=== PATIENT | female | born 1995 | race Asian ===

== ENCOUNTER 2018-10-15 13:12 | Emergency (ER) | payer OTHER ==
[~2018-10-15] VITALS: Ht 160 cm; Wt 76.2 kg
--- NOTE | 2018-10-15 14:59 | PHYS DOC ---
Past Medical History Past Medical History: No Pertinent History Past Surgical History: No Surgical History Alcohol Use: None Drug Use: None Adult General Chief Complaint Chief Complaint: ABDOMINAL PAIN IN HPI HPI Patient is a 23-year-old female, 2, para 1, approximately 7 weeks gestation, who presents to the emergency department for evaluation. Patient states that this morning she awakened with left-sided pelvic pain, feeling like she is expressing pressure on her ovary. She has had care this , including testing by her LAUNDRY MACHINE TENDER she states, as well as an early trimester ultrasound which the patient reports as being normal. She has not had any fevers or chills, although she has had some intermittent nausea and vomiting. She has not had any urinary symptoms, abnormal vaginal discharge, or vaginal bleeding. There are no alleviating or exacerbating factors to the patient's symptoms. Review of Systems Review of Systems Constitutional: Denies fever or chills [] Eyes: Denies change in visual acuity, redness, or eye pain [] HENT: Denies nasal congestion or sore throat [] Respiratory: Denies cough or shortness of breath [] Cardiovascular: The patient denies any shortness of breath, chest pain, palpitations, or orthopnea [] GI: Denies bloody stools or diarrhea [] : Denies dysuria or hematuria [] Musculoskeletal: Denies back pain or joint pain [] Integument: Denies rash or skin lesions [] Neurologic: Denies headache, focal weakness or sensory changes [] Endocrine: Denies polyuria or polydipsia [] All other systems were reviewed and found to be within normal limits, except as documented in this note. Current Medications Current Medications Current Medications Medications (Trade) Dose Ordered Sig/Francisca Start Time Stop Time Status Last Admin Dose Admin Acetaminophen (Tylenol) 1,000 mg 1X ONCE 10/15/18 15:00 10/15/18 15:01 DC 10/15/18 15:31 1,000 MG Allergies Allergies Allergies Coded Allergies Type Severity Reaction Last Updated Verified shrimp Allergy Severe CLOSES AIRWAY 10/15/18 Yes Physical Exam Physical Exam PHYSICAL EXAM: CONSTITUTIONAL: Well developed, well nourished HEAD: normocephalic, atraumatic EENT: PERRL, EOMI. Conjunctivae normal color, sclerae non-icteric; moist mucous membranes. NECK: Supple, non-tender; no meningismus. LUNGS: Lungs CTA, breathing even and unlabored. Normal air movement. HEART: Regular rate and rhythm, no murmur CHEST: No deformity; non-tender ABDOMEN: The abdomen is soft, there is mild tenderness to palpation in the left suprapubic region, without any rebound or guarding. The remainder the abdomen is soft and non-tender, no masses or bruits. EXTREM: Normal ROM; no deformity, no calf tenderness. Normal pulses palpable in all extremities. There is no pedal edema. SKIN: No rash; no diaphoresis NEURO: Alert; normal speech and cognition; CN's grossly intact; strength grossly intact without focal deficit. BACK: No CVA TTP. Current Patient Data Vital Signs Vital Signs Date Time Temp Pulse Resp B/P (MAP) Pulse Ox O2 Delivery O2 Flow Rate FiO2 10/15/18 13:36 98.4 83 16 122/67 (85) 97 Room Air 98.4 Lab Values Laboratory Tests Test 10/15/18 13:49 10/15/18 15:05 10/15/18 15:10 10/15/18 15:35 POC Urine HCG, Qualitative Hcg positive (Negative) White Blood Count 6.6 x10^3/uL (4.0-11.0) Red Blood Count 4.65 x10^6/uL (3.50-5.40) Hemoglobin 12.8 g/dL (12.0-15.5) Hematocrit 38.9 % (36.0-47.0) Mean Corpuscular Volume 84 fL (79-100) Mean Corpuscular Hemoglobin 27 pg (25-35) Mean Corpuscular Hemoglobin Concent 33 g/dL (31-37) Red Cell Distribution Width 15.9 % (11.5-14.5) H Platelet Count 209 x10^3/uL (140-400) Neutrophils (%) (Auto) 64 % (31-73) Lymphocytes (%) (Auto) 25 % (24-48) Monocytes (%) (Auto) 10 % (0-9) H Eosinophils (%) (Auto) 1 % (0-3) Basophils (%) (Auto) 1 % (0-3) Neutrophils # (Auto) 4.2 x10^3uL (1.8-7.7) Lymphocytes # (Auto) 1.6 x10^3/uL (1.0-4.8) Monocytes # (Auto) 0.6 x10^3/uL (0.0-1.1) Eosinophils # (Auto) 0.1 x10^3/uL (0.0-0.7) Basophils # (Auto) 0.0 x10^3/uL (0.0-0.2) Urine Collection Type Unknown Urine Color Yellow Urine Clarity Clear Urine pH 7.0 Urine Specific [place] 1.020 Urine Protein Negative mg/dL (NEG-TRACE) Urine Glucose (UA) Negative mg/dL (NEG) Urine Ketones (Stick) Negative mg/dL (NEG) Urine Blood Negative (NEG) Urine Nitrite Negative (NEG) Urine Bilirubin Negative (NEG) Urine Urobilinogen Dipstick 0.2 mg/dL (0.2 mg/dL) Urine Leukocyte Esterase Negative (NEG) Urine RBC 0 /HPF (0-2) Urine WBC Occ /HPF (0-4) Urine Squamous Epithelial Cells Few /LPF Urine Bacteria Few /HPF (0-FEW) Urine Mucus Mod /LPF Maternal Serum HCG Beta Subunit 28565 mIU/mL (0-5) H Sodium Level 141 mmol/L (136-145) Potassium Level 4.0 mmol/L (3.5-5.1) Chloride Level 103 mmol/L (98-107) Carbon Dioxide Level 29 mmol/L (21-32) Anion Gap 9 (6-14) Blood Urea Nitrogen 7 mg/dL (7-20) Creatinine 0.6 mg/dL (0.6-1.0) Estimated GFR (Cockcroft-Gault) 125.0 BUN/Creatinine Ratio 12 (6-20) Glucose Level 89 mg/dL (70-99) Calcium Level 8.9 mg/dL (8.5-10.1) Total Bilirubin 0.5 mg/dL (0.2-1.0) Aspartate Amino Transferase (AST) 14 U/L (15-37) L Alanine Aminotransferase (ALT) 19 U/L (14-59) Alkaline Phosphatase 104 U/L (46-116) Total Protein 7.7 g/dL (6.4-8.2) Albumin 3.7 g/dL (3.4-5.0) Albumin/Globulin Ratio 0.9 (1.0-1.7) L Laboratory Tests 10/15/18 15:05 Laboratory Tests 10/15/18 15:35 EKG EKG [] Radiology/Procedures Radiology/Procedures [PROCEDURE: OB <14 WKS W/TV Transabdominal and transvaginal sonogram of the pelvis-OB ultrasound study less than 14 weeks Clinical indications: 7 weeks . Left pelvic pain. Transabdominal sonography: Uterus is anteverted in position. The longitudinal and AP and transverse dimensions of the uterus are 11.0 cm and 5.5 cm and 6.3 cm respectively. There is a possible intrauterine gestational sac within the fundus of the uterus. Transvaginal sonography will be performed. Neither ovary is visualized. No adnexal mass or free fluid is evident. Transvaginal sonography: Within the fundus of the uterus, a round fluid collection is seen with a mean diameter of 2.15 cm corresponding to a gestational age of 7 weeks 1 day. No intrauterine pole or heartbeat or yolk sac is seen. Given the mean sac diameter, the finding is suspicious for but not diagnostic of failed i.e. blighted ovum. The right ovary measures 3.1 cm and 1.7 cm and 1.4 cm in size and is normal. Color Doppler flow is seen within the right ovary. The left ovary measures 1.0 cm and 2.2 cm and 1.4 cm in size and is normal. Color Doppler flow is seen within the left ovary. No adnexal mass is seen. IMPRESSION: Round fluid collection within the fundus uterus with a mean diameter of 2.15 cm which is suspicious for but not diagnostic of failed i.e. blighted ovum. Typically, the mean diameter of 2.5 cm or greater is needed to make this diagnosis with 100% confidence. Therefore, correlation with serial quantitative beta-hCG studies is recommended. Since a true intrauterine fetus is not seen, an ectopic has not been excluded. ] Course & Med Decision Making Course & Med Decision Making Pertinent Labs and Imaging studies reviewed. (See chart for details) [4:50 PM: The patient's condition remains stable. I discussed the case with her LAUNDRY MACHINE TENDER, Dr. Eisenberg, who will see the patient in the office this coming week. I discussed return precautions with the patient as well as pain management with acetaminophen.] She is blood pressure is 101/60 at this time. She did have some lower readings, but the blood pressure cuff was on her left arm and she was laying in the right decubitus position and with her arm elevated above her body.. Dragon Disclaimer Dragon Disclaimer This electronic medical record was generated, in whole or in part, using a voice recognition dictation system. Departure Departure Impression: Primary Impression: Blighted ovum Additional Impression: Pelvic pain affecting Disposition: HOME, SELF-CARE Condition: STABLE Referrals: HEATHER EISENBERG Jr, MD Patient Instructions: Abdominal Pain During , Blighted Ovum, Pelvic Pain, Female Additional Instructions: Tylenol as needed for pain. Return to medical care for any new or worsening symptoms, development of increasing pain, dizziness or lightheadedness, or any other new, or concerning symptoms. Problem Qualifiers CARLOS ESTEVEZ MD Oct 15, 2018 14:59
[2018-10-15] MEDS ORDERED: ACETAMINOPHEN 500 MG TABLET PO ONE (15:00)
[2018-10-15 15:15] LABS: BASO % 1 % (0-3); EOS # 0.1 x10^3/uL (0.0-0.7); EOS % 1 % (0-3); HEMATOCRIT 38.9 % (36.0-47.0); HEMOGLOBIN 12.8 g/dL (12.0-15.5); LYMPH # 1.6 x10^3/uL (1.0-4.8); LYMPH % 25 % (24-48); MEAN CORPUSCULAR HEMOGLOBIN 27 pg (25-35); MEAN CORPUSCULAR HGB CONC 33 g/dL (31-37); MEAN CORPUSCULAR VOLUME 84 fL (79-100); MONO # 0.6 x10^3/uL (0.0-1.1); MONO % 10 % (0-9); NEUT # 4.2 x10^3uL (1.8-7.7); NEUT % 64 % (31-73); PLATELET COUNT 209 x10^3/uL (140-400); RED BLOOD COUNT 4.65 x10^6/uL (3.50-5.40); RED CELL DISTRIBUTION WIDTH 15.9 % (11.5-14.5); WHITE BLOOD COUNT 6.6 x10^3/uL (4.0-11.0)
[2018-10-15 15:16] LABS: BILIRUBIN,URINE NEGATIVE (NEG); CLARITY,URINE CLEAR; COLOR,URINE YELLOW; NITRITE,URINE NEGATIVE (NEG); PROTEIN,URINE NEGATIVE (NEG-TRACE); UROBILINOGEN,URINE 0.2 mg/dL (0.2 mg/dL)
[2018-10-15 15:36] LABS: BACTERIA,URINE FEW /HPF (0-FEW); RBC,URINE 0 /HPF (0-2); SQUAMOUS EPITHELIAL CELL,UR FEW /LPF; WBC,URINE OCC /HPF (0-4)
[2018-10-15 15:54] LABS: CALCIUM 8.9 mg/dL (8.5-10.1); CREATININE 0.6 mg/dL (0.6-1.0)
[2018-10-15 16:08] LABS: ALBUMIN 3.7 g/dL (3.4-5.0); ALBUMIN/GLOBULIN RATIO 0.9 (1.0-1.7); TOTAL BILIRUBIN 0.5 mg/dL (0.2-1.0); TOTAL PROTEIN 7.7 g/dL (6.4-8.2)
--- NOTE | 2018-10-15 16:31 | RAD ---
Transabdominal and transvaginal sonogram of the pelvis-OB ultrasound study less than 14 weeks Clinical indications: 7 weeks . Left pelvic pain. Transabdominal sonography: Uterus is anteverted in position. The longitudinal and AP and transverse dimensions of the uterus are 11.0 cm and 5.5 cm and 6.3 cm respectively. There is a possible intrauterine gestational sac within the fundus of the uterus. Transvaginal sonography will be performed. Neither ovary is visualized. No adnexal mass or free fluid is evident. Transvaginal sonography: Within the fundus of the uterus, a round fluid collection is seen with a mean diameter of 2.15 cm corresponding to a gestational age of 7 weeks 1 day. No intrauterine pole or heartbeat or yolk sac is seen. Given the mean sac diameter, the finding is suspicious for but not diagnostic of failed i.e. blighted ovum. The right ovary measures 3.1 cm and 1.7 cm and 1.4 cm in size and is normal. Color Doppler flow is seen within the right ovary. The left ovary measures 1.0 cm and 2.2 cm and 1.4 cm in size and is normal. Color Doppler flow is seen within the left ovary. No adnexal mass is seen. IMPRESSION: Round fluid collection within the fundus uterus with a mean diameter of 2.15 cm which is suspicious for but not diagnostic of failed i.e. blighted ovum. Typically, the mean diameter of 2.5 cm or greater is needed to make this diagnosis with 100% confidence. Therefore, correlation with serial quantitative beta-hCG studies is recommended. Since a true intrauterine fetus is not seen, an ectopic has not been excluded. Electronically signed by: David Garg MD (10/15/2018 4:28 PM) [place] [id number]
[2018-10-15 17:30] VITALS: BP 99/50
[2018-10-23] MEDS ORDERED: ACET325T9 PO (11:47)
== END 2018-10-15 17:39 | disposition home or self-care (01) ==
LOC: ER 13:12
DX: O02.0 Blighted ovum and nonhydatidiform mole (principal); R10.2 Pelvic and perineal pain; O21.8 Other vomiting complicating pregnancy; Z91.013 Allergy to seafood; Z3A.01 Less than 8 weeks gestation of pregnancy
CPT/HCPCS: 36415; 76801; 76817; 80053; 81001; 81025; 84702; 85025; 86900; 86901; 99284-25

== ENCOUNTER 2018-10-26 05:53 | Day surgery (SDC) | payer OTHER ==
[~2018-10-26] VITALS: Ht 160 cm; Wt 76.2 kg
[~2018-10-26 05:53] MED LIST: ACET325T9 PO; OXYTOCIN 10 UNIT/ML VIAL. ONE; VASOPRESSIN 20 UNIT/ML VIAL. ONE
[2018-10-26] MEDS ORDERED: fentaNYL PF VIAL 100 MCG/2 ML VIAL IV PRN ×2 (07:00)
[2018-10-26] MEDS ORDERED: LIDOCAINE 1% PF 2 ML VIAL. ID PRN (07:00)
[2018-10-26] MEDS ORDERED: HYDROmorphone 2 MG/ML VIAL IV PRN (07:00)
[2018-10-26] MEDS ORDERED: IV RINGERS,LACTATED 1000ML 1,000 ML IV SCH (07:00)
[2018-10-26] MEDS ORDERED: MORPHINE SULFATE 2 MG/ML VIAL. IV PRN (07:00)
[2018-10-26] MEDS ORDERED: PROCHLORPERAZINE 10 MG/2 ML VIAL. IV PRN (07:00)
[2018-10-26] MEDS ORDERED: ceFAZolin 2GM PREMIX 2 GM/50 ML BAG IV ONE (07:00)
[2018-10-26] MEDS ORDERED: ONDANSETRON PF 4 MG/2 ML VIAL. IV PRN (07:00)
[2018-10-26] MEDS ORDERED: ONDANSETRON PF 4 MG/2 ML VIAL. ONE (07:24)
[2018-10-26] MEDS ORDERED: fentaNYL PF VIAL 100 MCG/2 ML VIAL ONE (07:24)
[2018-10-26] MEDS ORDERED: DEXAMETHASONE SOD PHOS 20 MG/5 ML VIAL. ONE (07:24)
[2018-10-26] MEDS ORDERED: LIDOCAINE 2% PF 5 ML VIAL. ONE (07:24)
[2018-10-26] MEDS ORDERED: MIDAZOLAM HCL/PF 2 MG/2 ML VIAL. ONE (07:24)
[2018-10-26] MEDS ORDERED: PROPOFOL 20 ML IV ONE (07:24)
[2018-10-26] MEDS ORDERED: KETOROLAC 30 MG/ML INJ FOR OR. INJ ONE (07:54)
[2018-10-26] MEDS ORDERED: SEVOFLURANE 16 TO 30 MINUTES. IH ONE (08:06)
[2018-10-26] MEDS ORDERED: FAMOTIDINE 20 MG/2 ML VIAL ONE (08:06)
--- NOTE | 2018-10-26 08:09 | PDOC ---
BRIEF OPERATIVE NOTE Date: Oct 26, 2018 Pre-Op Diagnosis Blighted ovum Post-Op Diagnosis Same Procedure Performed Suction D&C Surgeon Dr. Eisenberg Anesthesia Type: General Blood Loss 100 ml Specimens Obtained POC Findings POC Complications none Operative Note see dictation HEATHER EISENBERG Jr, MD Oct 26, 2018 08:09
--- NOTE | 2018-10-26 08:10 | DISCH ---
DISCHARGE INSTRUCTIONS Condition on Discharge Condition on Discharge: Stable Activity After Discharge Activity Instructions for Disc: Activity as tolerated Lifting Instructions after Dis: No heavy lifting Driving Instructions after Dis: Do not drive today Diet after Discharge Diet after Discharge: Regular Contacting the DRKaren after DC Call your doctor for: Concerns you may have Follow-Up Follow up with: Dr. Eisenberg in 1 week. HEATHER EISENBERG Jr, MD Oct 26, 2018 08:10
--- NOTE | 2018-10-26 08:19 | OP ---
DATE OF SURGERY: 10/26/2018 PREOPERATIVE DIAGNOSIS: A 7-week blighted ovum. POSTOPERATIVE DIAGNOSIS: A 7-week blighted ovum. PROCEDURE: Suction D and C. SURGEON: Angus Eisenberg MD. ANESTHESIA: GETA. ESTIMATED BLOOD LOSS: 100 mL. COMPLICATIONS: None. FINDINGS: Products of conception and blood products. SUMMARY: A 23-year-old female who was diagnosed with blighted ovum in clinic, required suction D and C. She was counseled on risks, benefits and expectations and voiced her clear understanding to proceed. DESCRIPTION OF PROCEDURE: The patient was taken to the surgery suite and placed in dorsal lithotomy position. She was prepped with Betadine solution and draped in a sterile fashion. After adequate anesthesia, weighted speculum and curved [place] were placed vaginally. The anterior lip of the cervix grasped with single tooth tenaculum. The cervix then dilated with Hegar dilators up to size 9. The suction curette was then passed and rotated in circumferential manner removing blood products and some products of conception. Sharp curettage took place until a fine gritty surface was palpated circumferentially. Suction curette was passed once again removing additional products of conception and blood products. Suction was then removed. Single tooth tenaculum, weighted speculum and curved [place] were also removed. The patient tolerated the procedure well and was taken to recovery room in stable condition. Sponge and needle count correct x 3. ANGUS EISENBERG MD DR: TRUDY/nts JOB#: [id number] / [id number]
[2018-10-26] MEDS ORDERED: OXYC1TAB15 PO (08:22)
[2018-10-26 09:27] VITALS: BP 101/59
== END 2018-10-26 10:07 | disposition home or self-care (01) ==
LOC: SURG 05:53
PROVIDERS: ATTEND Obstetrics & Gynecology
DX: O02.0 Blighted ovum and nonhydatidiform mole (principal); Z3A.01 Less than 8 weeks gestation of pregnancy; Z91.018 Allergy to other foods
CPT/HCPCS: 59820; 88305; J0696; J1100; J1885; J2001; J2250; J2405; J2704; J3010; J3490; J2590

== ENCOUNTER 2020-08-30 19:12 | Emergency (ER) | payer OTHER ==
[~2020-08-30] VITALS: Ht 160 cm; Wt 63.0 kg
[~2020-08-30 19:12] MED LIST changes: +OXYC1TAB15 PO; -OXYTOCIN 10 UNIT/ML VIAL. ONE; -VASOPRESSIN 20 UNIT/ML VIAL. ONE
[2020-08-30] MEDS ORDERED: HYDROcodone/APAP 5/325MG 1 TAB TABLET PO ONE (20:00)
--- NOTE | 2020-08-30 20:01 | PHYS DOC ---
Past Medical History Past Medical History: Other Additional Past Medical Histor: BLIGHTED OVUM W D&C Past Surgical History: Other Additional Past Surgical Histo: D & C Smoking Status: Former Smoker Alcohol Use: None Drug Use: None General Adult EDM: Chief Complaint: ANKLE PROBLEM HPI: HPI: Patient is a 25 year old female who presents with states today she slipped and twisted her left ankle rolling it inward. She has anterior malleolus tenderness and lateral malleolus swelling 2+. Patient is unable to walk on the extremity due to pain. She denies any numbness or tingling, coolness to the extremity, joint weakness. Patient has a history of bilateral, D&C, former smoker. She rates her aching pain 8 out of 10. Review of Systems: Review of Systems: Constitutional: Denies fever or chills. [] Eyes: Denies change in visual acuity. [] HENT: Denies nasal congestion or sore throat. [] Respiratory: Denies cough or shortness of breath. [] Cardiovascular: Denies chest pain. + Left ankle edema. [] GI: Denies abdominal pain, nausea, vomiting, bloody stools or diarrhea. [] : Denies dysuria. [] Musculoskeletal: Denies back pain. + Left ankle and + left foot joint pain. [] Integument: Denies rash. [] Neurologic: Denies headache, focal weakness or sensory changes. [] Endocrine: Denies polyuria or polydipsia. [] Lymphatic: Denies swollen glands. [] Psychiatric: Denies depression or anxiety. [] Heart Score: Risk Factors: Risk Factors: DM, Current or recent (<one month) smoker, HTN, HLP, family history of CAD, obesity. Risk Scores: Score 0 - 3: 2.5% MACE over next 6 weeks - Discharge Home Score 4 - 6: 20.3% MACE over next 6 weeks - Admit for Clinical Observation Score 7 - 10: 72.7% MACE over next 6 weeks - Early Invasive Strategies Current Medications: Current Medications Medications (Trade) Dose Ordered Sig/Francisca Start Time Stop Time Status Last Admin Dose Admin Acetaminophen/ Hydrocodone Bitart (Lortab 5/325) 1 tab 1X ONCE 08/30/20 20:00 08/30/20 20:01 Allergies: Allergies: Allergies Coded Allergies Type Severity Reaction Last Updated Verified shrimp Allergy Severe CLOSES AIRWAY 10/26/18 Yes Physical Exam: PE: Constitutional: Well developed, well nourished, no acute distress, non-toxic appearance. [] HENT: Normocephalic, atraumatic, bilateral external ears normal, oropharynx moist, no oral exudates, nose normal. [] Eyes: PERRLA, EOMI, conjunctiva normal, no discharge. [] Neck: Normal range of motion, no tenderness, supple, no stridor. [] Cardiovascular:Heart rate regular rhythm, no murmur [] Lungs & Thorax: Bilateral breath sounds clear to auscultation [] Abdomen: Bowel sounds normal, soft, no tenderness, no masses, no pulsatile masses. [] Skin: Warm, dry, no erythema, no rash. [] Back: No tenderness, no CVA tenderness. [] Extremities: Left anterior malleus tenderness, no cyanosis, no clubbing, left malleus ROM not intact, 2+ edema. [] Neurologic: Alert and oriented X 3, normal motor function, normal sensory function, no focal deficits noted. [] Psychologic: Affect normal, judgement normal, mood normal. [] Current Patient Data: Vital Signs: Vital Signs Date Time Temp Pulse Resp B/P (MAP) Pulse Ox O2 Delivery O2 Flow Rate FiO2 08/30/20 19:12 97.7 79 16 126/81 (96) 100 Room Air 97.7 EKG: EKG: [] Radiology/Procedures: Radiology/Procedures: [] Impression: [facility] [address] [place], [place] [id number] IMAGING REPORT Signed PATIENT: HUSEYIN ISAACS ACCOUNT: [id number] : 1995 LOCATION: ER AGE: 25 SEX: F EXAM STATUS: REG ER ORD. PHYSICIAN: TEE CAICEDO APRN REASON: pain, rolled ankle PROCEDURE: ANKLE LEFT 3V EXAM: 3 views left ankle 3 views left foot DATE: 08/30/2020 8:07 PM INDICATION: Reason: pain, rolled ankle / Spl. Instructions: / History: COMPARISON: No Prior FINDINGS: No acute fracture or dislocation. Forefoot soft tissue swelling. Ankle mortise is congruent. Talar dome is intact. Mild forefoot soft tissue swelling. IMPRESSION: No evidence of acute fracture or dislocation. Electronically signed by: Edd Yañez MD (08/30/2020 8:15 PM) [facility] DICTATED and SIGNED BY: EDD YAÑEZ MD DATE: 08/30/[id number] 0 Course & Med Decision Making: Course & Med Decision Making Pertinent Labs and Imaging studies reviewed. (See chart for details) See HPI. Alert and oriented x4. Ambulatory with a steady but limping gait on on the left leg. Speaks in full complete sentences. There is no tenderness to the tib-fib, knee. She denies any other pain and she denies hitting her head. She denies any back pain. She has full range of motion of the knee. No joint deformities. Pedal pulses strong present. Skin pink warm and dry. Cap refill less than 2 seconds. Range of motion in the ankle is not intact due to pain and swelling. Patient can wiggle her toes but it also causes her pain. There is no tenderness to the foot with palpation. Xray shows no acute findings. Patient is placed in a Cam Boot and to follow up with orthopedic. [] Dragon Disclaimer: Dragon Disclaimer: This electronic medical record was generated, in whole or in part, using a voice recognition dictation system. Departure Departure Impression: Primary Impression: Ankle pain, left Qualified Codes: M25.572 - Pain in left ankle and joints of left foot Disposition: 01 DC HOME SELF CARE/HOMELESS Condition: STABLE Referrals: ESTRELLITA GUAJARDO MD (PCP) MALGORZATA POTTER MD Patient Instructions: Ankle Sprain Additional Instructions: Follow up with the orthopedic or your primary care provider. Keep the extremity elevated and put ice on the extremity for pain and swelling. Take Ibuprofen for pain. Take prescription as prescribed and do not drink alcohol, drive, or take other drugs on top of narcotics as they will make you sleepy. Scripts Hydrocodone/Acetaminophen (Hydrocodone-Acetamin 5-325 mg) 1 Each Tablet 1 EACH PO Q6HRS PRN for PAIN, #10 TAB Prov: TEE CAICEDO ADMINISTRATIVE SALES ASSISTANT 08/30/20 Ibuprofen (IBUPROFEN) 600 Mg Tablet 600 MG PO PRN Q6HRS PRN for INFLAMMATION, #25 TAB Prov: TEE CAICEDO APRN 08/30/20 TEE CAICEDO APRN Aug 30, 2020 20:01
--- NOTE | 2020-08-30 20:17 | RAD ---
EXAM: 3 views left ankle 3 views left foot DATE: 08/30/2020 8:07 PM INDICATION: Reason: pain, rolled ankle / Spl. Instructions: / History: COMPARISON: No Prior FINDINGS: No acute fracture or dislocation. Forefoot soft tissue swelling. Ankle mortise is congruent. Talar dome is intact. Mild forefoot soft tissue swelling. IMPRESSION: No evidence of acute fracture or dislocation. Electronically signed by: Edd Seymour MD (08/30/2020 8:15 PM) [place]
[2020-08-30] MEDS ORDERED: HYDR-2759 PO (20:24)
[2020-08-30] MEDS ORDERED: IBUP-1007 PO (20:24)
[2020-08-30 20:47] VITALS: BP 116/65
== END 2020-08-30 21:03 | disposition home or self-care (01) ==
LOC: ER 19:12
DX: M25.572 Pain in left ankle and joints of left foot (principal); G89.11 Acute pain due to trauma; Z87.891 Personal history of nicotine dependence; Z91.013 Allergy to seafood; W01.0XXA Fall on same level from slipping, tripping and stumbling without subsequent striking against object, initial encounter; Y93.89 Activity, other specified; Y92.89 Other specified places as the place of occurrence of the external cause; Y99.8 Other external cause status
CPT/HCPCS: 73610; 73630; 99284; 99285

== ENCOUNTER 2020-10-28 18:35 | Emergency (ER) | payer OTHER ==
[~2020-10-28] VITALS: Ht 160 cm; Wt 75.0 kg
[~2020-10-28 18:35] MED LIST changes: +HYDR-2759 PO; +IBUP-1007 PO
[2020-10-28] MEDS ORDERED: IV NORMAL SALINE 1000ML BAG 1,000 ML IV ONE (19:30)
[2020-10-28] MEDS ORDERED: ONDANSETRON PF 4 MG/2 ML VIAL. IV ONE (19:30)
[2020-10-28] MEDS ORDERED: LIDO:MAALOX 1:1 20 ML SINGLE DOSE. SWSW ONE (19:30)
[2020-10-28 20:00] LABS: BASO # 0.1 x10^3/uL (0.0-0.2); BASO % 1 % (0-3); EOS # 0.3 x10^3/uL (0.0-0.7); EOS % 3 % (0-3); HEMATOCRIT 42.7 % (36.0-47.0); HEMOGLOBIN 14.1 g/dL (12.0-15.5); LYMPH # 2.3 x10^3/uL (1.0-4.8); LYMPH % 26 % (24-48); MEAN CORPUSCULAR HEMOGLOBIN 28 pg (25-35); MEAN CORPUSCULAR HGB CONC 33 g/dL (31-37); MEAN CORPUSCULAR VOLUME 86 fL (79-100); MONO # 0.6 x10^3/uL (0.0-1.1); MONO % 7 % (0-9); NEUT # 5.5 x10^3/uL (1.8-7.7); NEUT % 63 % (31-73); PLATELET COUNT 217 x10^3/uL (140-400); RED BLOOD COUNT 4.98 x10^6/uL (3.50-5.40); RED CELL DISTRIBUTION WIDTH 13.9 % (11.5-14.5); WHITE BLOOD COUNT 8.7 x10^3/uL (4.0-11.0)
[2020-10-28 20:04] LABS: BILIRUBIN,URINE NEGATIVE (NEG); CLARITY,URINE CLEAR; NITRITE,URINE NEGATIVE (NEG); PH,URINE 7.5 (<5.0-8.0); PROTEIN,URINE NEGATIVE (NEG-TRACE); UROBILINOGEN,URINE 0.2 mg/dL (0.2 mg/dL)
[2020-10-28 20:08] LABS: CALCIUM 9.2 mg/dL (8.5-10.1); CREATININE 0.9 mg/dL (0.6-1.0); GFR 76.9; POTASSIUM 3.7 mmol/L (3.5-5.1)
[2020-10-28 20:14] LABS: ALBUMIN 4.3 g/dL (3.4-5.0); ALBUMIN/GLOBULIN RATIO 0.9 (1.0-1.7); TOTAL BILIRUBIN 0.3 mg/dL (0.2-1.0); TOTAL PROTEIN 8.9 g/dL (6.4-8.2)
[2020-10-28 20:14] LABS: BACTERIA,URINE MANY /HPF (0-FEW); COLOR,URINE STRAW
[2020-10-28 20:16] LABS: RBC,URINE 0 /HPF (0-2); WBC,URINE OCC /HPF (0-4)
--- NOTE | 2020-10-28 20:18 | EKG ---
[facility] [address] [place] [address] Test Date: 2020-10-28 Test Time: 19:11:16 Pat Name: HUSEYIN ISAACS Department: Room: Gender: F Cabinet Maker: : 1995 Requested By: ELAINE WALDROP Order Number: [id number] Reading MD: Measurements Intervals [place] Rate: 66 P: 42 VA: 136 QRS: 47 QRSD: 70 T: 32 QT: 382 QTc: 402 Interpretive Statements SINUS RHYTHM LEFT ATRIAL ABNORMALITY ABNORMAL ECG RI6.02 No previous ECG available for comparison
--- NOTE | 2020-10-28 20:27 | RAD ---
Study: XR CHEST 2V Indication: Shortness of air. Chest pain. Comparison: None. Findings: The cardiomediastinal silhouette and anup are within normal limits. No focal airspace opacity, pleural effusion or pneumothorax. Grossly intact osseous structures. Unremarkable upper abdomen. Impression: No acute radiographic abnormality of the chest. Electronically signed by: CELINA MANCIA MD (10/28/2020 8:25 PM) [facility]
[2020-10-28] MEDS ORDERED: IOHEXOL 350 MG/ML 100 ML VIAL. IV ONE (20:30)
--- NOTE | 2020-10-28 20:40 | ED.ADGEN ---
Past Medical History Past Medical History: Other Additional Past Medical Histor: BLIGHTED OVUM W D&C Past Surgical History: Other Additional Past Surgical Histo: D & C Smoking Status: Former Smoker Additional Information: "I STOPPED 3 DAYS AGO." Alcohol Use: Occasionally Drug Use: None General Adult EDM: Chief Complaint: SHORTNESS OF BREATH HPI: HPI: Patient is a 25 year old female who presents emergency department with complaints of epigastric pain that radiates up to her chest for the last 3 days. Patient reports that she is also felt short of breath, she denies any wheezing. Patient reports that her epigastric pain radiates through to her back. She denies any dizziness, headache, palpitations, diaphoresis, nausea, vomiting, diarrhea, or lower abdominal pain. She denies any known exposure to COVID-19. Patient denies any fever, cough, sore throat, or myalgias. She states that her chest pain increases when she takes a deep breath. Patient reports concern because she has family history of stroke and heart attacks. Patient reports that she did smoke cigarettes until she developed her symptoms 3 days ago. She currently rates her discomfort 8 out of 10 on the pain scale, she denies any alleviating factors. Review of Systems: Review of Systems: Complete ROS is negative unless otherwise noted in HPI. Current Medications: Current Medications Medications (Trade) Dose Ordered Sig/[facility] Start Time Stop Time Status Last Admin Dose Admin Info (CONTRAST GIVEN -- Rx MONITORING) 1 each PRN DAILY PRN 10/28/20 20:45 10/30/20 20:44 Iohexol (Omnipaque 350 Mg/ml) 100 ml 1X ONCE 10/28/20 20:30 10/28/20 20:31 DC 10/28/20 20:51 100 ML Multi-Ingredient Mouthwash/Gargle (Gi Cocktail) 20 ml 1X ONCE 10/28/20 19:30 10/28/20 19:31 DC 10/28/20 19:54 20 ML Ondansetron HCl (Zofran) 4 mg 1X ONCE 10/28/20 19:30 10/28/20 19:31 DC 10/28/20 19:54 4 MG Sodium Chloride 1,000 ml @ 1,000 mls/hr 1X ONCE 10/28/20 19:30 10/28/20 20:29 DC 10/28/20 19:54 1,000 MLS/HR Allergies: Allergies: Allergies Coded Allergies Type Severity Reaction Last Updated Verified shrimp Allergy Severe CLOSES AIRWAY 10/26/18 Yes Physical Exam: PE: See Above Constitutional: Well developed, well nourished, no acute distress, non-toxic appearance, anxious. [] HENT: Normocephalic, atraumatic, bilateral external ears normal, nose normal. [] Eyes: PERRLA, EOMI, conjunctiva normal, no discharge. [] Neck: Normal range of motion, no stridor. [] Cardiovascular:Heart rate regular rhythm Lungs & Thorax: Respirations even and unlabored, no retractions, no respiratory distress, nontender Abdomen: soft, epigastric tenderness to palpation, abdomen is otherwise nontender, no palpable mass, no pulsatile mass, no guarding, no rebound tenderness Skin: Warm, dry, no erythema, no rash. [] Extremities: No cyanosis, ROM intact, no edema. [] Neurologic: Alert and oriented X 3, no focal deficits noted. [] Psychologic: Affect anxious, judgement normal, mood normal. [] Current Patient Data: Labs: Laboratory Tests Test 10/28/20 19:47 10/28/20 19:50 10/28/20 19:56 White Blood Count 8.7 x10^3/uL (4.0-11.0) Red Blood Count 4.98 x10^6/uL (3.50-5.40) Hemoglobin 14.1 g/dL (12.0-15.5) Hematocrit 42.7 % (36.0-47.0) Mean Corpuscular Volume 86 fL (79-100) Mean Corpuscular Hemoglobin 28 pg (25-35) Mean Corpuscular Hemoglobin Concent 33 g/dL (31-37) Red Cell Distribution Width 13.9 % (11.5-14.5) Platelet Count 217 x10^3/uL (140-400) Neutrophils (%) (Auto) 63 % (31-73) Lymphocytes (%) (Auto) 26 % (24-48) Monocytes (%) (Auto) 7 % (0-9) Eosinophils (%) (Auto) 3 % (0-3) Basophils (%) (Auto) 1 % (0-3) Neutrophils # (Auto) 5.5 x10^3/uL (1.8-7.7) Lymphocytes # (Auto) 2.3 x10^3/uL (1.0-4.8) Monocytes # (Auto) 0.6 x10^3/uL (0.0-1.1) Eosinophils # (Auto) 0.3 x10^3/uL (0.0-0.7) Basophils # (Auto) 0.1 x10^3/uL (0.0-0.2) D-Dimer (Ema) 1.18 ug/mlFEU (0.00-0.50) H Sodium Level 138 mmol/L (136-145) Potassium Level 3.7 mmol/L (3.5-5.1) Chloride Level 102 mmol/L (98-107) Carbon Dioxide Level 29 mmol/L (21-32) Anion Gap 7 (6-14) Blood Urea Nitrogen 11 mg/dL (7-20) Creatinine 0.9 mg/dL (0.6-1.0) Estimated GFR (Cockcroft-Gault) 76.9 BUN/Creatinine Ratio 12 (6-20) Glucose Level 81 mg/dL (70-99) Calcium Level 9.2 mg/dL (8.5-10.1) Total Bilirubin 0.3 mg/dL (0.2-1.0) Aspartate Amino Transferase (AST) 21 U/L (15-37) Alanine Aminotransferase (ALT) 30 U/L (14-59) Alkaline Phosphatase 112 U/L (46-116) Creatine Kinase 137 U/L (26-192) Troponin I Quantitative < 0.017 ng/mL (0.000-0.055) Total Protein 8.9 g/dL (6.4-8.2) H Albumin 4.3 g/dL (3.4-5.0) Albumin/Globulin Ratio 0.9 (1.0-1.7) L Urine Collection Type Void Urine Color Straw Urine Clarity Clear Urine pH 7.5 (<5.0-8.0) Urine Specific [place] 1.010 (1.000-1.030) Urine Protein Negative mg/dL (NEG-TRACE) Urine Glucose (UA) Negative mg/dL (NEG) Urine Ketones (Stick) Negative mg/dL (NEG) Urine Blood Negative (NEG) Urine Nitrite Negative (NEG) Urine Bilirubin Negative (NEG) Urine Urobilinogen Dipstick 0.2 mg/dL (0.2 mg/dL) Urine Leukocyte Esterase Negative (NEG) Urine RBC 0 /HPF (0-2) Urine WBC Occ /HPF (0-4) Urine Squamous Epithelial Cells Many /LPF Urine Bacteria Many /HPF (0-FEW) POC Urine HCG, Qualitative Hcg negative (Negative) Laboratory Tests 10/28/20 19:47 Laboratory Tests 10/28/20 19:47 Vital Signs: Vital Signs Date Time Temp Pulse Resp B/P (MAP) Pulse Ox O2 Delivery O2 Flow Rate FiO2 10/28/20 21:59 58 119/77 (91) 100 Room Air 10/28/20 18:56 97.8 12 97.8 EKG: EK-sinus rhythm, rate 66, no STEMI, read by Dr. Prado. [] Heart Score: C/O Chest Pain: Yes HEART Score for Chest Pain: HEART Score for Chest Pain Response (Comments) Value History Slighlty/Non-Suspicious 0 ECG Normal 0 Age < 45 0 Risk Factors 1 or 2 Risk Factors 1 Troponin < Normal Limit 0 Total 1 Risk Factors: Risk Factors: Current or recent (<one month) smoker, family history of CAD Risk Scores: Score 0 - 3: 2.5% MACE over next 6 weeks - Discharge Home Score 4 - 6: 20.3% MACE over next 6 weeks - Admit for Clinical Observation Score 7 - 10: 72.7% MACE over next 6 weeks - Early Invasive Strategies Radiology/Procedures: Radiology/Procedures: PROCEDURE: CHEST PA & LATERAL Study: XR CHEST 2V Indication: Shortness of air. Chest pain. Comparison: None. Findings: The cardiomediastinal silhouette and anup are within normal limits. No focal airspace opacity, pleural effusion or pneumothorax. Grossly intact osseous structures. Unremarkable upper abdomen. Impression: No acute radiographic abnormality of the chest. Electronically signed by: CELINA MANCIA MD (10/28/2020 8:25 PM) [facility] PROCEDURE: CT ANGIOGRAPHY CHEST Exam: CT of chest with contrast INDICATION: Short of air, chest pain TECHNIQUE: Sequential axial images through the chest obtained following the administration of 90 mL of Isovue-370 IV contrast. Sagittal and coronal reformatted images were reconstructed from the axial data and reviewed. 3-D reformatted images were reconstructed from the axial data and reviewed. Comparisons: Chest x-ray same day FINDINGS: Visual is portions of the thyroid are unremarkable. No enlarged mediastinal lymph nodes. Heart size is normal. No pericardial effusion. Thoracic aorta has a normal course and caliber. Pulmonary artery is not enlarged. No pulmonary embolus identified within the main, lobar or segmental pulmonary arteries. Airways are patent. No suspicious lung nodules. No consolidation or pneumothorax. No pleural effusion or thickening. Visualized upper abdomen is unremarkable. No suspicious osseous lesions or acute fractures. IMPRESSION: No pulmonary embolus identified within the main, lobar or segmental pulmonary arteries. Exposure: One or more of the following in the visualized dose reduction techniques were utilized for this examination: 1. Automated exposure control 2. Adjustment of the MA and/or KV according to patient size 3. Use of iterative of reconstructive technique Course & Med Decision Making: Course & Med Decision Making Pertinent Labs and Imaging studies reviewed. (See chart for details) 25-year-old female presents emergency department with multiple complaints. Patient had a complete work-up, CBC is unremarkable, CMP is also unremarkable, cardiac enzymes are not elevated, UA is unremarkable, urine is negative, chest x-ray is normal, patient's D-dimer was noted to be elevated therefore CT angio of her chest was done as patient reported risk factor of smoking. CT angio was negative for pulmonary embolus or other acute finding. Patient reported feeling better after administration of a GI cocktail. I advised her that her symptoms are likely due to acid reflux. I provided her w ith diet instructions for GERD. A prescription for Pepcid 20 mg p.o. twice daily was written. I encouraged patient to follow-up with her primary care doctor next week for further evaluation, return to the ER if symptoms worsen. Patient verbalized an understanding of home care, medications, follow-up, and return to ED instructions and was in agreement with the plan of care. [] Dragon Disclaimer: Dragon Disclaimer: This electronic medical record was generated, in whole or in part, using a voice recognition dictation system. Departure Departure Impression: Primary Impression: Chest pain in adult Additional Impression: GERD (gastroesophageal reflux disease) Disposition: 01 DC HOME SELF CARE/HOMELESS Condition: STABLE Referrals: ESTRELLITA GUAJARDO MD (PCP) Patient Instructions: Chest Pain (Nonspecific), [id number], Diet for Gastroesophageal Reflux Disease, Adult, [id number], Gastroesophageal Reflux Disease, Adult, [id number] Additional Instructions: Fill prescriptions and use them as directed. Follow the diet instructions provided. Follow-up with your primary care doctor in the next 1-2 days. Return to the emergency room if your symptoms worsen or if fever develops. Scripts Famotidine (FAMOTIDINE) 20 Mg Tablet 20 MG PO BID for 10 Days, #20 TAB 0 Refills Prov: ELAINE WALDROP APRN 10/28/20 Attending Signature Attending Signature I have reviewed the PA/SAMPLE MAKER's note and plan of care. I was available for consultation as needed during the patient's visit in the emergency department. I agree with the clinical impression, plan, and disposition. Problem Qualifiers Additional Impression: GERD (gastroesophageal reflux disease) Esophagitis presence: esophagitis presence not specified Qualified Codes: K21.9 - Gastro-esophageal reflux disease without esophagitis ELAINE WALDROP APRN Oct 28, 2020 20:40 PRADO,BANG Mariscal DO Oct 29, 2020 00:12
[2020-10-28] MEDS ORDERED: CONTRAST GIVEN. MC PRN (20:45)
--- NOTE | 2020-10-28 21:02 | RAD ---
Exam: CT of chest with contrast INDICATION: Short of air, chest pain TECHNIQUE: Sequential axial images through the chest obtained following the administration of 90 mL o f Isovue-370 IV contrast. Sagittal and coronal reformatted images were reconstructed from the axial d timothy and reviewed. 3-D reformatted images were reconstructed from the axial data and reviewed. Comparisons: Chest x-ray same day FINDINGS: Visual is portions of the thyroid are unremarkable. No enlarged mediastinal lymph nodes. Heart size is normal. No pericardial effusion. Thoracic aorta has a normal course and caliber. Pulmon alicia artery is not enlarged. No pulmonary embolus identified within the main, lobar or segmental pulmo nary arteries. Airways are patent. No suspicious lung nodules. No consolidation or pneumothorax. No pleural effusion or thickening. Visualized upper abdomen is unremarkable. No suspicious osseous lesions or acute fractures. IMPRESSION: No pulmonary embolus identified within the main, lobar or segmental pulmonary arteries. Exposure: One or more of the following in the visualized dose reduction techniques were utilized for this examination: 1. Automated exposure control 2. Adjustment of the MA and/or KV according to patient size 3. Use of iterative of reconstructive technique Electronically signed by: Lorrie Newton MD (10/28/2020 9:00 PM) [facility]
[2020-10-28] MEDS ORDERED: FAMO20TA5 PO (21:34)
[2020-10-28 21:59] VITALS: BP 119/77
== END 2020-10-28 21:59 ==
LOC: ER 18:35
DX: K21.9 Gastro-esophageal reflux disease without esophagitis (principal); R07.89 Other chest pain; R06.02 Shortness of breath; Z87.891 Personal history of nicotine dependence
CPT/HCPCS: 36415; 71046; 71275; 80053; 81001; 81025; 82550; 84484; 85025; 85379; 87086; 93005; 96361; 96374; 99285; J2405; J7030; Q9967

== ENCOUNTER 2020-12-22 12:03 | Emergency (ER) | payer OTHER ==
[~2020-12-22] VITALS: Ht 160 cm; Wt 72.7 kg
[~2020-12-22 12:03] MED LIST changes: +FAMO20TA5 PO
[2020-12-22 13:00] LABS: BILIRUBIN,URINE NEGATIVE (NEG); CLARITY,URINE CLEAR; COLOR,URINE YELLOW; NITRITE,URINE NEGATIVE (NEG); PH,URINE 6.5 (<5.0-8.0); PROTEIN,URINE NEGATIVE (NEG-TRACE); UROBILINOGEN,URINE 0.2 mg/dL (0.2 mg/dL)
[2020-12-22] MEDS ORDERED: IV NORMAL SALINE 1000ML BAG 1,000 ML IV ONE (13:00)
[2020-12-22 13:22] LABS: BACTERIA,URINE 0 /HPF (0-FEW); RBC,URINE 0 /HPF (0-2); WBC,URINE OCC /HPF (0-4)
[2020-12-22 13:25] LABS: BASO % 1 % (0-3); EOS # 0.2 x10^3/uL (0.0-0.7); EOS % 2 % (0-3); HEMATOCRIT 38.9 % (36.0-47.0); HEMOGLOBIN 13.1 g/dL (12.0-15.5); LYMPH # 1.7 x10^3/uL (1.0-4.8); LYMPH % 21 % (24-48); MEAN CORPUSCULAR HEMOGLOBIN 29 pg (25-35); MEAN CORPUSCULAR HGB CONC 34 g/dL (31-37); MEAN CORPUSCULAR VOLUME 86 fL (79-100); MONO # 0.6 x10^3/uL (0.0-1.1); MONO % 7 % (0-9); NEUT # 5.4 x10^3/uL (1.8-7.7); NEUT % 69 % (31-73); PLATELET COUNT 193 x10^3/uL (140-400); RED BLOOD COUNT 4.53 x10^6/uL (3.50-5.40); RED CELL DISTRIBUTION WIDTH 14.5 % (11.5-14.5); WHITE BLOOD COUNT 7.9 x10^3/uL (4.0-11.0)
[2020-12-22] MEDS ORDERED: ONDANSETRON PF 4 MG/2 ML VIAL. IV ONE (13:30)
[2020-12-22 13:48] LABS: CALCIUM 8.4 mg/dL (8.5-10.1); CREATININE 0.8 mg/dL (0.6-1.0); GFR 88.1
[2020-12-22 13:55] LABS: ALBUMIN 4.1 g/dL (3.4-5.0); ALBUMIN/GLOBULIN RATIO 1.1 (1.0-1.7); TOTAL BILIRUBIN 0.7 mg/dL (0.2-1.0); TOTAL PROTEIN 7.8 g/dL (6.4-8.2)
[2020-12-22 14:15] VITALS: BP 176/87
--- NOTE | 2020-12-22 14:42 | RAD ---
Site ID: [id number] EXAMINATION: US PELVIS W/TV. HISTORY: 25 years Female Reason: R adnexal pain COMPARISON: None. FINDINGS: The uterus is 8.5 x 5.4 x 3.3 cm. The endometrial stripe is 9 mm in thickness. There is no focal mass in the uterus. Small amount of a free fluid is seen in the cul-de-sac, of uncertain significance. The right ovary is 4.9 x 4.3 x 3.8 cm. There is a hypoechoic lesion in the right ovary measuring 3.5 x 2.1 cm with increased through transmission and no internal vascularity. This could represent a hemo rrhagic cyst. The left ovary is 2.4 x 1.3 x 1.5 cm. Doppler evaluation demonstrates the normal arterial waveforms in the right ovary. IMPRESSION: There is a 3.5 cm hypoechoic lesion in the right ovary likely related to hemorrhagic cyst. Follow-up ultrasound in 3 months is recommended to ensure resolution. Electronically signed by: Abdullahi Jones MD (12/22/2020 2:40 PM) [id number]
[2020-12-22] MEDS ORDERED: METR500T PO (15:13)
--- NOTE | 2020-12-22 15:13 | ED.ADGEN ---
Past Medical History Past Medical History: Other Additional Past Medical Histor: BLIGHTED OVUM W D&C Past Surgical History: Other Additional Past Surgical Histo: D & C Smoking Status: Former Smoker Alcohol Use: Occasionally Drug Use: None General Adult EDM: Chief Complaint: ABDOMINAL PAIN HPI: HPI: Patient is a 25 year old female who presents emergency department with complaints of irregular vaginal discharge and pelvic pain that began this morning. Patient states the pain was so severe that she actually vomited once. She currently denies any nausea or abdominal pain. She denies any dysuria, hematuria, or increased urinary frequency. Patient denies any concerns for sexually transmitted infection. She denies any fever, cough, sore throat, body aches, fatigue, or rash. Patient denies any concerns of . She currently rates her discomfort a 5 out of 10 on the pain scale, she states that the pain is in her pelvis and it feels like a constant pressure. She denies any alleviating or exacerbating factors. Review of Systems: Review of Systems: Complete ROS is negative unless otherwise noted in HPI. Current Medications: Current Medications Medications (Trade) Dose Ordered Sig/[facility] Start Time Stop Time Status Last Admin Dose Admin Ondansetron HCl (Zofran) 4 mg 1X ONCE 12/22/20 13:30 12/22/20 13:31 DC 12/22/20 13:15 4 MG Sodium Chloride 1,000 ml @ 1,000 mls/hr 1X ONCE 12/22/20 13:00 12/22/20 13:59 DC 12/22/20 13:15 1,000 MLS/HR Allergies: Allergies: Allergies Coded Allergies Type Severity Reaction Last Updated Verified shrimp Allergy Severe CLOSES AIRWAY 10/26/18 Yes Physical Exam: PE: See Above Constitutional: Well developed, well nourished, no acute distress, non-toxic appearance. HENT: Normocephalic, atraumatic, bilateral external ears normal, nose normal. Eyes: PERRLA, EOMI, conjunctiva normal, no discharge. Neck: Normal range of motion, no stridor. Cardiovascular: Heart rate regular rhythm Lungs & Thorax: Respirations even and unlabored, no retractions, no respiratory distress Pelvic Exam: Area Director Of Home Health Sales present Jo RN Abdomen: Nontender, soft External Genitalia: Normal Skin Speculum: Normal vaginal mucosa, normal cervical discharge Bimanual: No adnexal masses or tenderness, No CMT Skin: Warm, dry, no erythema, no rash. Back: No tenderness Extremities: No cyanosis, ROM intact, no edema. Neurologic: Alert and oriented X 3, no focal deficits noted. Psychologic: Affect normal, judgement normal, mood normal. Current Patient Data: Labs: Laboratory Tests Test 12/22/20 12:10 12/22/20 12:20 12/22/20 13:15 Urine Collection Type Unknown Urine Color Yellow Urine Clarity Clear Urine pH 6.5 (<5.0-8.0) Urine Specific [place] 1.025 (1.000-1.030) Urine Protein Negative mg/dL (NEG-TRACE) Urine Glucose (UA) Negative mg/dL (NEG) Urine Ketones (Stick) 40 mg/dL (NEG) Urine Blood Negative (NEG) Urine Nitrite Negative (NEG) Urine Bilirubin Negative (NEG) Urine Urobilinogen Dipstick 0.2 mg/dL (0.2 mg/dL) Urine Leukocyte Esterase Negative (NEG) Urine RBC 0 /HPF (0-2) Urine WBC Occ /HPF (0-4) Urine Squamous Epithelial Cells Few /LPF Urine Bacteria 0 /HPF (0-FEW) Urine Mucus Slight /LPF POC Urine HCG, Qualitative Hcg negative (Negative) White Blood Count 7.9 x10^3/uL (4.0-11.0) Red Blood Count 4.53 x10^6/uL (3.50-5.40) Hemoglobin 13.1 g/dL (12.0-15.5) Hematocrit 38.9 % (36.0-47.0) Mean Corpuscular Volume 86 fL (79-100) Mean Corpuscular Hemoglobin 29 pg (25-35) Mean Corpuscular Hemoglobin Concent 34 g/dL (31-37) Red Cell Distribution Width 14.5 % (11.5-14.5) Platelet Count 193 x10^3/uL (140-400) Neutrophils (%) (Auto) 69 % (31-73) Lymphocytes (%) (Auto) 21 % (24-48) L Monocytes (%) (Auto) 7 % (0-9) Eosinophils (%) (Auto) 2 % (0-3) Basophils (%) (Auto) 1 % (0-3) Neutrophils # (Auto) 5.4 x10^3/uL (1.8-7.7) Lymphocytes # (Auto) 1.7 x10^3/uL (1.0-4.8) Monocytes # (Auto) 0.6 x10^3/uL (0.0-1.1) Eosinophils # (Auto) 0.2 x10^3/uL (0.0-0.7) Basophils # (Auto) 0.0 x10^3/uL (0.0-0.2) Sodium Level 141 mmol/L (136-145) Potassium Level 4.0 mmol/L (3.5-5.1) Chloride Level 104 mmol/L (98-107) Carbon Dioxide Level 27 mmol/L (21-32) Anion Gap 10 (6-14) Blood Urea Nitrogen 12 mg/dL (7-20) Creatinine 0.8 mg/dL (0.6-1.0) Estimated GFR (Cockcroft-Gault) 88.1 BUN/Creatinine Ratio 15 (6-20) Glucose Level 88 mg/dL (70-99) Calcium Level 8.4 mg/dL (8.5-10.1) L Total Bilirubin 0.7 mg/dL (0.2-1.0) Aspartate Amino Transferase (AST) 12 U/L (15-37) L Alanine Aminotransferase (ALT) 20 U/L (14-59) Alkaline Phosphatase 93 U/L (46-116) Total Protein 7.8 g/dL (6.4-8.2) Albumin 4.1 g/dL (3.4-5.0) Albumin/Globulin Ratio 1.1 (1.0-1.7) Laboratory Tests 12/22/20 13:15 Laboratory Tests 12/22/20 13:15 Microbiology 12/22/20 Wet Prep - Final, Complete Vital Signs: Vital Signs Date Time Temp Pulse Resp B/P (MAP) Pulse Ox O2 Delivery O2 Flow Rate FiO2 12/22/20 14:15 56 176/87 (116) 96 Room Air 12/22/20 12:52 97.2 16 97.2 EKG: EKG: [] Heart Score: C/O Chest Pain: No Risk Scores: Score 0 - 3: 2.5% MACE over next 6 weeks - Discharge Home Score 4 - 6: 20.3% MACE over next 6 weeks - Admit for Clinical Observation Score 7 - 10: 72.7% MACE over next 6 weeks - Early Invasive Strategies Radiology/Procedures: Radiology/Procedures: PROCEDURE: PELVIS W/TV Site ID: [id number] EXAMINATION: US PELVIS W/TV. HISTORY: 25 years Female Reason: R adnexal pain COMPARISON: None. FINDINGS: The uterus is 8.5 x 5.4 x 3.3 cm. The endometrial stripe is 9 mm in thickness. There is no focal mass in the uterus. Small amount of a free fluid is seen in the cul-de-sac, of uncertain significance. The right ovary is 4.9 x 4.3 x 3.8 cm. There is a hypoechoic lesion in the right ovary measuring 3.5 x 2.1 cm with increased through transmission and no internal vascularity. This could represent a hemorrhagic cyst. The left ovary is 2.4 x 1.3 x 1.5 cm. Doppler evaluation demonstrates the normal arterial waveforms in the right ovary. IMPRESSION: There is a 3.5 cm hypoechoic lesion in the right ovary likely related to hemorrhagic cyst. Follow-up ultrasound in 3 months is recommended to ensure resolution. Electronically signed by: Abdullahi Jones MD (12/22/2020 2:40 PM) [id number] [] Course & Med Decision Making: Course & Med Decision Making Pertinent Labs and Imaging studies reviewed. (See chart for details) Patient declined STI testing. Wet mount was concerning for bacterial vaginosis Ultrasound revealed3.5 cm hypoechoic lesion in the right ovary is likely hemorrhagic cyst.. [] Discussed these results with patient, encouraged her to take Tylenol or ibuprofen as needed for pain. Prescription written for Flagyl. Patient was provided with Dr. Urrutia's information for follow-up, I encouraged her to return to the ER if symptoms worsen or fever develop. Patient verbalized an understanding of home care, medications, follow-up, and return to ED instructions and was in agreement with the plan of care. Dragon Disclaimer: Dragon Disclaimer: This electronic medical record was generated, in whole or in part, using a voice recognition dictation system. Departure Departure Impression: Primary Impression: Bacterial vaginosis Additional Impression: Right ovarian cyst Disposition: HOME / SELF CARE / HOMELESS Condition: STABLE Referrals: BANG URRUTIA MD Patient Instructions: Bacterial Vaginosis, [id number], Ovarian Cyst, [id number] Additional Instructions: Fill the prescription and use it as directed. Follow-up with your INSURANCE INVESTIGATOR or Dr. Urrutia for further evaluation of your right ovarian cyst. Recommend that you take Tylenol or ibuprofen as needed for pain. Return to the ER if your symptoms worsen or fever develops. Scripts Metronidazole (FLAGYL) 500 Mg Tablet 1 TAB PO BID, #14 TAB Prov: ELAINE WALDROP APRN 12/22/20 Problem Qualifiers ELAINE WALDROP APRN December 22, 2020 15:13
== END 2020-12-22 15:28 | disposition home or self-care (01) ==
LOC: ER 12:03
DX: N76.0 Acute vaginitis (principal); B96.89 Other specified bacterial agents as the cause of diseases classified elsewhere; N83.201 Unspecified ovarian cyst, right side; Z91.013 Allergy to seafood
CPT/HCPCS: 36415; 76830; 76856; 80053; 81001; 81025; 85025; 96361; 96374; 99284; J2405; J7030; Q0111